=== PATIENT | female | born 1955 | race Hispanic/Latino ===

== ENCOUNTER 2019-09-21 10:31 | Emergency (ER) | payer MEDICARE ==
[2019-09-21] MEDS ORDERED: SODIUM CHLORIDE 0.9% 1000 ML 1,000 ML ONE (10:42)
[2019-09-21] MEDS ORDERED: SODIUM CHLORIDE 0.9% 500 ML 500 ML IV ONE ×2 (10:45→12:00)
[2019-09-21] MEDS ORDERED: ACETAMINOPHEN 650 MG RECT SUPP PR STA (10:45)
[2019-09-21] MEDS ORDERED: SODIUM CHLORIDE 0.9% 1000 ML IV SOLN IV ONE (10:54)
[2019-09-21] MEDS ORDERED: PIPERACIL/TAZOBACTA 4.5/NS 100 4.5 GM/100 ML VIAL IV ONE (10:56)
--- NOTE | 2019-09-21 11:18 | XRay Report ---
CHEST 1 VIEW 09/21/2019 10:49 AM INDICATION / CLINICAL INFORMATION: possible Sepsis. COMPARISON: None available. FINDINGS: SUPPORT DEVICES: A right arm PICC terminates over the mid to distal SVC. HEART / MEDIASTINUM: No significant abnormality. LUNGS / PLEURA: There is nonspecific generalized bilateral interstitial prominence without an additio nal significant pulmonary abnormality. No significant pleural effusion or pneumothorax is seen. ADDITIONAL FINDINGS: No significant additional findings. IMPRESSION: 1. Nonspecific interstitial prominence could represent mild edema. 2. Right arm PICC as above. Signer Name: Ayush Navarro MD Signed: 09/21/2019 11:13 AM Workstation Name: [id number]
[2019-09-21 11:37] LABS: Basophils % (Auto) 0.5 % (0.0-1.8); Eosinophils % (Auto) 0.5 % (0.0-4.3); Hematocrit 24.5 % (30.3-42.9); Hemoglobin 7.7 gm/dl (10.1-14.3); Lymphocytes # (Auto) 0.7 K/mm3 (1.2-5.4); Lymphocytes % (Auto) 6.9 % (13.4-35.0); Mean Corpuscular HGB Conc 31 % (30-34); Mean Corpuscular Volume 77 fl (79-97); Monocytes # (Auto) 0.7 K/mm3 (0.0-0.8); Platelet Count 486 K/mm3 (140-440); Red Blood Count 3.17 M/mm3 (3.65-5.03)
[2019-09-21 11:38] LABS: Red Cell Distribution Width 21.6 % (13.2-15.2)
--- NOTE | 2019-09-21 11:56 | Emergency Department Report ---
ED General Adult HPI - General Chief complaint: Fever Stated complaint: ELVATED TEMP/POSS INFECTION/LOW BP Time Seen by Provider: 09/21/19 10:53 Source: patient, EMS Mode of arrival: Stretcher Limitations: Physical Limitation - History of Present Illness Initial comments: This is a 64-year-old female that was brought by EMS for fever, hypotensive and tachycardia. Patient has history of a colonic fistula and dehisced open abdominal wound. Patient does also has history of diabetes mellitus, GERD, hypertension, sleep apnea. Patient was originally seen in [facility] on 05/06 and underwent a incisional hernia repair by Dr. Ribera. Patient later developed sepsis and received drains to the abdomen. Patient is currently a patient and from [facility]. Patient has a history of anemia, anxiety, arthritis, back pain, diabetes mellitus, and dyspnea on exertion. -: days(s) Improves with: none Worsens with: none Associated Symptoms: confusion, diaphoresis, fever/chills, weakness. denies: chest pain, cough, nausea/vomiting, rash, seizure, shortness of breath, syncope - Related Data Allergies Allergy/AdvReac Type Severity Reaction Status Date / Time fluoxetine Allergy Unknown Verified 09/21/19 10:47 NSAIDS (Non-Steroidal Allergy Unknown Verified 09/21/19 10:47 Anti-Inflamma ED Review of Systems ROS: Stated complaint: ELVATED TEMP/POSS INFECTION/LOW BP Other details as noted in HPI Constitutional: fever, weakness ENT: denies: congestion Respiratory: denies: cough, shortness of breath, wheezing Cardiovascular: denies: chest pain Gastrointestinal: denies: vomiting ED Past Medical Hx - Past Medical History Previous Medical History?: Yes Hx Hypertension: Yes Hx Diabetes: Yes Hx GERD: Yes Hx Psychiatric Treatment: Yes (anxiety, major depressive, pain med dependency) Additional medical history: hyperlipidemia. muscle weakness. lack of coordination. peritoneal abscess. abdominal hernia. colonic fistula. obesity. Pt only takes TPN, NPO. osteoarthritis - Surgical History Past Surgical History?: Yes Additional Surgical History: "intestinal sx" - Social History Smoking Status: Former Smoker Substance Use Type: None ED Physical Exam - General Limitations: Physical Limitation General appearance: alert - Head Head exam: Present: atraumatic - Eye Eye exam: Present: normal appearance, PERRL, EOMI - ENT ENT exam: Present: normal exam, normal orophraynx - Neck Neck exam: Present: normal inspection, full ROM. Absent: tenderness, meningismus, lymphadenopathy - Respiratory Respiratory exam: Present: normal lung sounds bilaterally. Absent: respiratory distress - Cardiovascular Cardiovascular Exam: Present: tachycardia - GI/Abdominal GI/Abdominal exam: Present: distended, tenderness, other (right abdominal pain dressing with foul order and draining). Absent: guarding, rebound - Extremities Exam Extremities exam: Present: full ROM - Back Exam Back exam: Present: full ROM. Absent: tenderness, CVA tenderness (R), CVA tenderness (L), muscle spasm, paraspinal tenderness, vertebral tenderness, rash noted - Neurological Exam Neurological exam: Present: alert - Psychiatric Psychiatric exam: Present: normal affect, normal mood - Skin Skin exam: Present: warm, dry, intact, normal color. Absent: rash ED Course Vital Signs 09/21/19 09/21/19 09/21/19 10:34 10:38 10:45 Temperature 103.2 F H Pulse Rate 120 H 119 H Respiratory 32 H 18 Rate Blood Pressure 106/53 96/54 O2 Sat by Pulse 96 97 94 Oximetry 09/21/19 09/21/19 09/21/19 11:00 11:15 11:30 Temperature Pulse Rate 111 H 109 H 108 H Respiratory 28 H 32 H 32 H Rate Blood Pressure 110/54 111/48 123/51 O2 Sat by Pulse 99 94 Oximetry 09/21/19 09/21/19 09/21/19 11:45 12:00 12:43 Temperature Pulse Rate 105 H 106 H 100 H Respiratory 30 H 30 H 27 H Rate Blood Pressure 134/51 110/45 98/42 O2 Sat by Pulse 99 98 97 Oximetry 09/21/19 09/21/19 09/21/19 12:45 13:00 13:15 Temperature Pulse Rate 100 H 95 H 92 H Respiratory 31 H 18 25 H Rate Blood Pressure 101/41 93/37 90/38 O2 Sat by Pulse 97 98 98 Oximetry 09/21/19 09/21/19 09/21/19 13:20 13:30 13:32 Temperature 100.2 F H Pulse Rate 92 H 89 Respiratory 20 18 Rate Blood Pressure 97/31 78/35 O2 Sat by Pulse 98 98 Oximetry 09/21/19 09/21/19 09/21/19 13:35 13:40 13:45 Temperature Pulse Rate 89 86 86 Respiratory 20 22 23 Rate Blood Pressure 85/37 96/39 90/37 O2 Sat by Pulse 97 99 100 Oximetry 09/21/19 09/21/19 09/21/19 13:50 13:55 14:00 Temperature Pulse Rate 85 83 83 Respiratory 22 19 18 Rate Blood Pressure 92/37 92/36 90/36 O2 Sat by Pulse 99 99 99 Oximetry 09/21/19 09/21/19 09/21/19 14:05 14:10 14:15 Temperature Pulse Rate 85 82 81 Respiratory 17 16 19 Rate Blood Pressure 93/40 82/34 86/32 O2 Sat by Pulse 100 99 97 Oximetry 09/21/19 09/21/19 09/21/19 14:20 14:25 14:30 Temperature Pulse Rate 80 78 78 Respiratory 18 17 22 Rate Blood Pressure 88/35 94/34 76/35 O2 Sat by Pulse 97 97 97 Oximetry 09/21/19 09/21/19 09/21/19 14:35 14:40 14:45 Temperature Pulse Rate 77 81 77 Respiratory 17 15 19 Rate Blood Pressure 93/34 102/40 77/35 O2 Sat by Pulse 96 97 97 Oximetry 09/21/19 09/21/19 09/21/19 14:50 14:55 15:00 Temperature Pulse Rate 78 78 77 Respiratory 19 12 14 Rate Blood Pressure 84/36 84/35 82/35 O2 Sat by Pulse 98 99 99 Oximetry 09/21/19 09/21/19 09/21/19 15:05 15:10 15:15 Temperature Pulse Rate 73 73 71 Respiratory 14 15 18 Rate Blood Pressure 88/39 93/39 94/40 O2 Sat by Pulse 98 98 Oximetry - Consultations Consultation #1: 09/21/19 11:51 Patient has been consulted with Dr. Bello about patient history, physical exam, and lagrees to ED plan of care and admission. Consultation #2: 09/21/19 13:51 Patient has been consulted with Dr. Sari V about patient history, physical exam, and labs/CT results and accepts patient to services. Consultation #3: 09/21/19 14:45 Patient has been consulted with Dr. Casey (general surgery) about patient history, physical exam, and labs/CT results and stated patient needs to be transferred to [facility] for more advanced therapy. 09/21/19 15:[address] Ribera and accepted by Dr. Younger ([facility]). ED Medical Decision Making - Lab Data Result diagrams: 09/21/19 11:21 09/21/19 11:21 - Medical Decision Making 64-year-old female that presents with sepsis. Patient is stable and was examined by me. Labs has been obtained. Patient received 3 L normal saline. Patient also received antibiotics in ER. Patient was consulted with Dr. Bello and seen by Dr. Casey. As per Dr. Casey, patient needs a more intensive treatment and requests patient to be transferred to [facility] where the patient had her original surgery by Dr. Ribera. Patient is accepted by Dr. Younger. At time of transfer, the patient does not seem toxic or ill in appearance. No acute signs of distress noted. Patient agrees to transfer treatment plan of care. No further questions noted by the patient. Critical care attestation.: If time is entered above; I have spent that time in minutes in the direct care of this critically ill patient, excluding procedure time. ED Disposition Clinical Impression: Sepsis associated hypotension, Lactic acidosis, Colonic fistula UTI (urinary tract infection) Qualifiers: Urinary tract infection type: acute cystitis Hematuria presence: with hematuria Qualified Code(s): N30.01 - Acute cystitis with hematuria Altered mental status Qualifiers: Altered mental status type: unspecified Qualified Code(s): R41.82 - Altered mental status, unspecified Abdominal wound dehiscence Qualifiers: Encounter type: initial encounter Qualified Code(s): T81.30XA - Disruption of wound, unspecified, initial encounter Disposition: DC/TX-70 ANOTHER TYPE HLTHCARE Is pt being admited?: No Condition: Stable Referrals: SHIRA MCCABE MD [Primary Care Provider] - 3-5 Days
[2019-09-21] MEDS ORDERED: CEFEPIME/NS 2 GM/100 ML 2 GM/100 ML BAG IV SCH (12:00)
[2019-09-21 12:01] LABS: Albumin 2.6 g/dL (3.9-5); Calcium 9.5 mg/dL (8.4-10.2)
[2019-09-21] MEDS ORDERED: MORPHINE 2 MG/1 ML INJ IV ONE ×2 (12:02→12:14)
[2019-09-21 12:08] LABS: INR 1.17 (0.87-1.13)
[2019-09-21] MEDS ORDERED: metroNIDAZOLE/NS 500 MG/100 ML 500 MG/100 ML BAG IV SCH (13:00)
--- NOTE | 2019-09-21 13:21 | Cat Scan Report ---
CT ABDOMEN AND PELVIS WITH CONTRAST INDICATION: sepsis. COMPARISON: No relevant prior imaging study available. TECHNIQUE: Axial, coronal and sagittal CT imaging of the abdomen and pelvis was performed after inje ction of 60 mL Omnipaque [address] scans at this location are performed using CT dose red uction for ALARA by means of automated exposure control. FINDINGS: LOWER CHEST: There are multiple bilateral nodular areas of consolidation along the lung bases that me asure up to 1.6 cm on image 19 of series 3. Mild bibasilar atelectasis is also noted. No additional s ignificant abnormality is seen. LIVER: Enlarged without an additional significant abnormality. BILIARY: A lamellated gallstone measures 3.7 cm without evidence of acute cholecystitis. No biliary d uctal dilatation is seen. PANCREAS: No significant abnormality. SPLEEN: No significant abnormality. ADRENALS: No significant abnormality. KIDNEYS AND URETERS: No significant abnormality is seen along the right kidney or ureter. 2 cysts are seen along the mid pole of the left kidney measuring up to 4.1 cm. No additional significant abnorma lity of the left kidney or ureter is seen. GI TRACT: Unremarkable appearing partial bowel resection changes are noted along the lower abdomen wi th a right lower quadrant ostomy. The appendix is unremarkable. No other significant abnormality is s een. PERITONEUM: No free fluid. No free air. No fluid collection. LYMPH NODES: No significant adenopathy. VASCULATURE: The aorta is normal in caliber with mild generalized atherosclerosis. URINARY BLADDER: No significant abnormality. REPRODUCTIVE ORGANS: The uterus is unremarkable. There are bilateral ovarian cysts measuring 5.1 x 4. 1 cm on the left and 4.8 x 4.0 cm on the right. ADDITIONAL FINDINGS: None. SKELETAL SYSTEM: No acute abnormality is seen. There are degenerative changes throughout the spine. IMPRESSION: 1. Suspected bibasilar pneumonia. Please correlate with the clinical findings. 2. No acute abnormality of the abdomen or pelvis. 3. Additional findings as above. Signer Name: Ayush Navarro MD Signed: 09/21/2019 1:16 PM Workstation Name: [id number]
[2019-09-21] MEDS ORDERED: SODIUM CHLORIDE 0.9% 1000 ML 1,000 ML IV ONE (13:46)
[2019-09-21 13:53] LABS: Bacteria,Urine 3+ /HPF (Negative); Bilirubin,Urine NEG (Negative); Blood,Urine MOD (Negative); Color,Urine Yellow (Yellow); Mucus,Urine FEW /HPF; Urobilinogen,Urine < 2.0 mg/dL (<2.0)
[2019-09-21] MEDS ORDERED: NORepinephrine/NS 4 MG-250 ML 4 MG/250 ML BAG IV SCH (15:00)
--- NOTE | 2019-09-21 15:17 | Consultation ---
History of Present Illness Consult date: 09/21/19 Chief complaint: fever 103 - History of present illness History of present illness: 64 yo F with hx of morbid obesity, multiple abdominal surgeries for colonic fistula with large open abdominal wound and drain (04/2019) at [facility] presents to ER due to fever of 103. Pt arrived to ER and was found to be hypotensive and tachycardic. Pt does not have any particular complaints. NO cp, sob, abd pain. She states that her surgeon, Dr. Ribera at [place] was referring her to a more specialized surgeon to operate on her abdominal wound and fistula. Past History Past Medical History: anemia, arthritis, diabetes, GERD, hypertension, other (morbid obesity, colonic fistula, GERD, sleep apnea) Past Surgical History: hernia repair, Other (multiple abdominal surgeries) Social history: other (lives at [place] Family history: no significant family history Medications and Allergies Allergies Allergy/AdvReac Type Severity Reaction Status Date / Time fluoxetine Allergy Unknown Verified 09/21/19 10:47 NSAIDS (Non-Steroidal Allergy Unknown Verified 09/21/19 10:47 Anti-Inflamma Active Meds: Active Medications Cefepime HCl (Cefepime/Ns 2 Gm/100 Ml) 2 gm in 100 mls @ 200 mls/hr IV Q8H GREYSON; Protocol Last Infusion: 09/21/19 13:31 Dose: Infused Documented by: Metronidazole (Flagyl 500 Mg/100 Ml) 500 mg in 100 mls @ 100 mls/hr IV Q8H GREYSON; Protocol Last Admin: 09/21/19 13:28 Dose: 100 mls/hr Documented by: Norepinephrine (Levophed Drip 4 Mg/Ns 250 Ml) 4 mg in 250 mls @ 7.5 mls/hr IV TITR GREYSON; Protocol Last Admin: 09/21/19 14:56 Dose: 2 mcg/min, 7.5 mls/hr Documented by: Review of Systems All systems: negative Exam Vital Signs Pulse Ox 96 09/21/19 10:34 Narrative exam: Gen; AAOx3. NAD ENT: + conjunctival pallor CV: s1, S2+ resp; even and unlabored Abd: soft, ND, NT, morbidly obese with large dressing on right side of abdomen. HUBERT drain present with stool. There is loss of domain and ?bowel visible through clear dressing. Ext: no c/c/e Results - Labs 09/21/19 11:21 09/21/19 11:21 Abnormal lab results 09/21/19 09/21/19 09/21/19 Range/Units 11:21 11:21 11:21 RBC 3.17 L (3.65-5.03) M/mm3 Hgb 7.7 L (10.1-14.3) gm/dl Hct 24.5 L (30.3-42.9) % MCV 77 L (79-97) fl MCH 24 L (28-32) pg RDW 21.6 H (13.2-15.2) % Plt Count 486 H (140-440) K/mm3 Lymph % (Auto) 6.9 L (13.4-35.0) % Lymph # 0.7 L (1.2-5.4) K/mm3 Seg Neutrophils % 85.1 H (40.0-70.0) % Seg Neutrophils # 8.8 H (1.8-7.7) K/mm3 INR 1.17 H (0.87-1.13) Sodium 129 L (137-145) mmol/L Chloride 96.9 L (98-107) mmol/L Carbon Dioxide 17 L (22-30) mmol/L BUN 25 H (7-17) mg/dL Glucose 194 H (65-100) mg/dL Lactic Acid (0.7-2.0) mmol/L AST 60 H (5-40) units/L ALT 57 H (7-56) units/L Alkaline Phosphatase 393 H (35-129) units/L Albumin 2.6 L (3.9-5) g/dL Ur Specific [place] (1.003-1.030) Urine WBC (Auto) (0.0-6.0) /HPF Crossmatch 09/21/19 09/21/19 09/21/19 Range/Units 11:21 12:57 13:12 RBC (3.65-5.03) M/mm3 Hgb (10.1-14.3) gm/dl Hct (30.3-42.9) % MCV (79-97) fl MCH (28-32) pg RDW (13.2-15.2) % Plt Count (140-440) K/mm3 Lymph % (Auto) (13.4-35.0) % Lymph # (1.2-5.4) K/mm3 Seg Neutrophils % (40.0-70.0) % Seg Neutrophils # (1.8-7.7) K/mm3 INR (0.87-1.13) Sodium (137-145) mmol/L Chloride (98-107) mmol/L Carbon Dioxide (22-30) mmol/L BUN (7-17) mg/dL Glucose (65-100) mg/dL Lactic Acid 2.20 H* (0.7-2.0) mmol/L AST (5-40) units/L ALT (7-56) units/L Alkaline Phosphatase (35-129) units/L Albumin (3.9-5) g/dL Ur Specific [place] 1.051 H (1.003-1.030) Urine WBC (Auto) 97.0 H (0.0-6.0) /HPF Crossmatch See Detail Diabetes panel 09/21/19 Range/Units 11:21 Sodium 129 L (137-145) mmol/L Potassium 4.7 (3.6-5.0) mmol/L Chloride 96.9 L (98-107) mmol/L Carbon Dioxide 17 L (22-30) mmol/L BUN 25 H (7-17) mg/dL Creatinine 1.2 (0.7-1.2) mg/dL Glucose 194 H (65-100) mg/dL Calcium 9.5 (8.4-10.2) mg/dL AST 60 H (5-40) units/L ALT 57 H (7-56) units/L Alkaline Phosphatase 393 H (35-129) units/L Total Protein 7.7 (6.3-8.2) g/dL Albumin 2.6 L (3.9-5) g/dL Calcium panel 09/21/19 Range/Units 11:21 Calcium 9.5 (8.4-10.2) mg/dL Albumin 2.6 L (3.9-5) g/dL Pituitary panel 09/21/19 Range/Units 11:21 Sodium 129 L (137-145) mmol/L Potassium 4.7 (3.6-5.0) mmol/L Chloride 96.9 L (98-107) mmol/L Carbon Dioxide 17 L (22-30) mmol/L BUN 25 H (7-17) mg/dL Creatinine 1.2 (0.7-1.2) mg/dL Glucose 194 H (65-100) mg/dL Calcium 9.5 (8.4-10.2) mg/dL Adrenal panel 09/21/19 Range/Units 11:21 Sodium 129 L (137-145) mmol/L Potassium 4.7 (3.6-5.0) mmol/L Chloride 96.9 L (98-107) mmol/L Carbon Dioxide 17 L (22-30) mmol/L BUN 25 H (7-17) mg/dL Creatinine 1.2 (0.7-1.2) mg/dL Glucose 194 H (65-100) mg/dL Calcium 9.5 (8.4-10.2) mg/dL Total Bilirubin 0.90 (0.1-1.2) mg/dL AST 60 H (5-40) units/L ALT 57 H (7-56) units/L Alkaline Phosphatase 393 H (35-129) units/L Total Protein 7.7 (6.3-8.2) g/dL Albumin 2.6 L (3.9-5) g/dL - Imaging CT scan - abdomen: report reviewed, image reviewed CT scan - pelvis: report reviewed, image reviewed Assessment and Plan 64 yo F with 1. sepsis 2. large abdominal wound 3. colonic fistula Plan: 1. NPO 2. IVF 3. IV abx 4. Once patient is stabilized, recommend transfer from ER to [facility] or a tertiary care center for further evaluation of open abdominal wound/fistula as likely source of sepsis. We do not have the capabilities at this facility to manage a complex fistula with open abdominal wound. Discussed with Dr. Guo and ER provider. Thank you, please call with questions.
[2019-09-21] MEDS ORDERED: SODIUM CHLORIDE 0.9% 500 ML 500 ML ONE (16:02)
[2019-09-21 17:31] VITALS: BP 113/51
== END 2019-09-21 17:32 | disposition other institution (70) ==
LOC: ED 10:31
DX: S31.109A Unspecified open wound of abdominal wall, unspecified quadrant without penetration into peritoneal cavity, initial encounter (principal); A41.9 Sepsis, unspecified organism; R10.0 Acute abdomen; K63.2 Fistula of intestine; X58.XXXA Exposure to other specified factors, initial encounter; Y93.89 Activity, other specified; Y92.89 Other specified places as the place of occurrence of the external cause; Y99.8 Other external cause status
CPT/HCPCS: 36415; 36430; 36556; 71045; 74177; 80053; 81001; 82140; 82805; 85025; 85610; 86850; 86900; 86901; 86920; 87040; 87076; 87086; 87186; 93005; 93010; 96365; 96366; 96368; 99285; J0692; J2543; J7030; J7040; P9016; Q9967